=== PATIENT | female | born 1945 | race Native Hawaiian/Other Pacific Islander ===

== ENCOUNTER 2016-06-09 21:25 | Emergency (ER) | payer OTHER ==
[~2016-06-09] VITALS: Ht 165.1 cm; Wt 91.2 kg
[~2016-06-09 21:25] MED LIST: ATEN50TA36 PO; BUDE1AER5 INH; ENALAPRIL20 MG PO; FURO10IN15 PO; FURO40TA93 PO; HUMALOG100 MG/ML SC; INSUINJP SC; LEVO0.2T35 PO; NITR100C56 PO; NITROSTAT0.4 MG SL; PEPCID40 MG PO; POTASSIUM CHLO10 ME2 PO; PROAIR HFA INH
[2016-06-09 23:06] VITALS: BP 157/88; TEMP 97.8
[2016-07-26] MEDS ORDERED: AMOX875T8 PO (03:36)
[2016-10-10] MEDS ORDERED: LEVEMIR SC (12:00)
[2016-10-10] MEDS ORDERED: HUMULIN R1 M1 SC (12:02)
== END 2016-06-09 23:10 | disposition home or self-care (01) ==
LOC: ED 21:25
DX: J32.8 Other chronic sinusitis (principal); J06.9 Acute upper respiratory infection, unspecified
CPT/HCPCS: 96372; 96373; 99283; J0696; J1100

== ENCOUNTER 2016-06-17 23:56 | Emergency (ER) | payer OTHER ==
[~2016-06-17] VITALS: Ht 165.1 cm; Wt 91.6 kg
[2016-06-18] MEDS ORDERED: DIOVAN HCT160 MG/25 PO (00:13)
[2016-06-18] MEDS ORDERED: CLARITIN10 M1 PO (00:13)
[2016-06-18] MEDS ORDERED: PANT40TA PO (00:13)
[2016-06-18] MEDS ORDERED: HYDR10TA47 PO (00:14)
[2016-06-18 01:19] VITALS: BP 160/72; TEMP 98.4
[2016-07-26] MEDS ORDERED: AMOX875T8 PO (03:36)
[2016-10-10] MEDS ORDERED: LEVEMIR SC (12:00)
[2016-10-10] MEDS ORDERED: HUMULIN R1 M1 SC (12:02)
== END 2016-06-18 01:20 | disposition home or self-care (01) ==
LOC: ED 23:56
DX: G43.809 Other migraine, not intractable, without status migrainosus (principal); J32.8 Other chronic sinusitis
CPT/HCPCS: 96361; 96374; 96375; 99284; J1100; J1200; J1885; J2405

== ENCOUNTER 2016-06-21 00:01 | Emergency (ER) | payer OTHER ==
[~2016-06-21] VITALS: Ht 165.1 cm; Wt 91.6 kg
[~2016-06-21 00:01] MED LIST changes: +CLARITIN10 M1 PO; +DIOVAN HCT160 MG/25 PO; +HYDR10TA47 PO; +PANT40TA PO
[2016-06-21 00:31] VITALS: BP 145/68; TEMP 97.6
[2016-07-26] MEDS ORDERED: AMOX875T8 PO (03:36)
[2016-10-10] MEDS ORDERED: LEVEMIR SC (12:00)
[2016-10-10] MEDS ORDERED: HUMULIN R1 M1 SC (12:02)
== END 2016-06-21 00:32 | disposition home or self-care (01) ==
LOC: ED 00:01
DX: J32.8 Other chronic sinusitis (principal); R51 Headache
CPT/HCPCS: 96372; 99282; J1885

== ENCOUNTER 2016-06-25 18:16 | Emergency (ER) | payer OTHER ==
[~2016-06-25] VITALS: Ht 165.1 cm; Wt 91.2 kg
[2016-06-25 19:53] VITALS: BP 169/79; TEMP 97.6
[2016-07-26] MEDS ORDERED: AMOX875T8 PO (03:36)
[2016-10-10] MEDS ORDERED: LEVEMIR SC (12:00)
[2016-10-10] MEDS ORDERED: HUMULIN R1 M1 SC (12:02)
== END 2016-06-25 19:53 | disposition home or self-care (01) ==
LOC: ED 18:16
DX: G43.809 Other migraine, not intractable, without status migrainosus (principal)
CPT/HCPCS: 96372; 99283; J3030

== ENCOUNTER 2016-07-19 22:38 | Emergency (ER) | payer OTHER ==
[~2016-07-19] VITALS: Ht 165.1 cm; Wt 94.3 kg
[2016-07-20 00:42] VITALS: BP 129/55; TEMP 98.7
[2016-07-26] MEDS ORDERED: AMOX875T8 PO (03:36)
[2016-10-10] MEDS ORDERED: LEVEMIR SC (12:00)
[2016-10-10] MEDS ORDERED: HUMULIN R1 M1 SC (12:02)
== END 2016-07-20 00:42 | disposition home or self-care (01) ==
LOC: ED 22:38
DX: M54.10 Radiculopathy, site unspecified (principal)
CPT/HCPCS: 96372; 99283; J1885

== ENCOUNTER 2016-07-23 10:53 | Outpatient (CLI) | payer OTHER ==
[2016-07-26] MEDS ORDERED: AMOX875T8 PO (03:36)
[2016-10-10] MEDS ORDERED: LEVEMIR SC (12:00)
[2016-10-10] MEDS ORDERED: HUMULIN R1 M1 SC (12:02)
== END 2016-07-23 19:16 | disposition home or self-care (01) ==
LOC: CT 10:53
DX: J32.0 Chronic maxillary sinusitis (principal)

== ENCOUNTER 2016-07-31 22:52 | Emergency (ER) | payer OTHER ==
[~2016-07-31] VITALS: Ht 165.1 cm; Wt 94.3 kg
[~2016-07-31 22:52] MED LIST changes: +AMOX875T8 PO
[2016-08-01 00:44] LABS: PLATELET COUNT 307 K/uL (152-353)
[2016-08-01 01:35] LABS: POTASSIUM 4.3 mmol/L (3.6-5.2)
[2016-08-01 01:49] VITALS: BP 143/84; TEMP 98.7
[2016-10-10] MEDS ORDERED: LEVEMIR SC (12:00)
[2016-10-10] MEDS ORDERED: HUMULIN R1 M1 SC (12:02)
== END 2016-08-01 01:53 | disposition home or self-care (01) ==
LOC: ED 22:52
PROVIDERS: Specialist
DX: R10.13 Epigastric pain (principal); R06.2 Wheezing
CPT/HCPCS: 36415; 80053; 82805; 83880; 85027; 99283

== ENCOUNTER 2016-08-10 14:29 | Outpatient (CLI) | payer OTHER ==
[2016-10-10] MEDS ORDERED: LEVEMIR SC (12:00)
[2016-10-10] MEDS ORDERED: HUMULIN R1 M1 SC (12:02)
== END 2016-08-10 19:16 | disposition home or self-care (01) ==
LOC: RESP 14:29
DX: R06.02 Shortness of breath (principal)
CPT/HCPCS: 93306

== ENCOUNTER 2016-08-28 18:51 | Emergency (ER) | payer OTHER ==
[~2016-08-28] VITALS: Ht 165.1 cm; Wt 94.3 kg
[2016-08-28 20:08] LABS: PLATELET COUNT 243 K/uL (152-353)
[2016-08-28 21:07] VITALS: BP 135/79; TEMP 98.3
[2016-10-10] MEDS ORDERED: LEVEMIR SC (12:00)
[2016-10-10] MEDS ORDERED: HUMULIN R1 M1 SC (12:02)
== END 2016-08-28 21:08 | disposition home or self-care (01) ==
LOC: ED 18:51
DX: B34.9 Viral infection, unspecified (principal)
CPT/HCPCS: 80053; 85027; 87081; 87804; 87880; 96360; 99284

== ENCOUNTER 2016-09-17 12:13 | Outpatient (CLI) | payer OTHER ==
[2016-09-17 12:30] VITALS: BP 110/66; TEMP 98.7
[2016-10-10] MEDS ORDERED: LEVEMIR SC (12:00)
[2016-10-10] MEDS ORDERED: HUMULIN R1 M1 SC (12:02)
== END 2016-09-17 14:00 | disposition home or self-care (01) ==
LOC: INF 12:13
DX: J32.9 Chronic sinusitis, unspecified (principal)
CPT/HCPCS: 96365; 96366; J1956

== ENCOUNTER 2016-09-18 10:07 | Outpatient (CLI) | payer OTHER ==
[2016-10-10] MEDS ORDERED: LEVEMIR SC (12:00)
[2016-10-10] MEDS ORDERED: HUMULIN R1 M1 SC (12:02)
== END 2016-09-18 12:00 | disposition home or self-care (01) ==
LOC: INF 10:07
DX: J32.9 Chronic sinusitis, unspecified (principal)
CPT/HCPCS: 96365; 96366; J1956

== ENCOUNTER 2016-09-19 08:52 | Outpatient (CLI) | payer OTHER ==
[2016-09-19 09:05] VITALS: BP 156/74; TEMP 97
[2016-10-10] MEDS ORDERED: LEVEMIR SC (12:00)
[2016-10-10] MEDS ORDERED: HUMULIN R1 M1 SC (12:02)
== END 2016-09-19 21:54 | disposition home or self-care (01) ==
LOC: INF 08:52
DX: J32.9 Chronic sinusitis, unspecified (principal)
CPT/HCPCS: 96365; 96366; J1956

== ENCOUNTER 2016-09-20 10:57 | Outpatient (CLI) | payer OTHER ==
[~2016-09-20] VITALS: Ht 165.1 cm; Wt 93.9 kg
[2016-09-20 11:04] VITALS: BP 145/69; TEMP 97.7
[2016-09-20 13:40] VITALS: BP 154/63; TEMP 97.9
[2016-10-10] MEDS ORDERED: LEVEMIR SC (12:00)
[2016-10-10] MEDS ORDERED: HUMULIN R1 M1 SC (12:02)
== END 2016-09-20 19:22 | disposition home or self-care (01) ==
LOC: INF 10:57
DX: J32.9 Chronic sinusitis, unspecified (principal)
CPT/HCPCS: 96365; 96366; J1956

== ENCOUNTER 2016-09-21 09:07 | Outpatient (CLI) | payer OTHER ==
[~2016-09-21] VITALS: Ht 165.1 cm; Wt 93.9 kg
[2016-09-21 09:15] VITALS: BP 142/66; TEMP 97.6
[2016-09-21 11:55] VITALS: BP 134/66; TEMP 98.4
[2016-10-10] MEDS ORDERED: LEVEMIR SC (12:00)
[2016-10-10] MEDS ORDERED: HUMULIN R1 M1 SC (12:02)
== END 2016-09-21 12:03 | disposition home or self-care (01) ==
LOC: INF 09:07
DX: J32.9 Chronic sinusitis, unspecified (principal)
CPT/HCPCS: 96365; 96366; J1956

== ENCOUNTER 2016-09-22 09:29 | Outpatient (CLI) | payer OTHER ==
[~2016-09-22] VITALS: Ht 170.2 cm; Wt 93.9 kg
[2016-09-22 10:14] VITALS: BP 156/79; TEMP 97.6
[2016-09-22 12:25] VITALS: BP 131/76; TEMP 97.6
[2016-10-10] MEDS ORDERED: LEVEMIR SC (12:00)
[2016-10-10] MEDS ORDERED: HUMULIN R1 M1 SC (12:02)
== END 2016-09-22 12:25 | disposition home or self-care (01) ==
LOC: INF 09:29
DX: J32.9 Chronic sinusitis, unspecified (principal)
CPT/HCPCS: 96365; 96366; J1956

== ENCOUNTER 2016-09-23 12:07 | Outpatient (CLI) | payer OTHER ==
[2016-09-23 12:15] VITALS: BP 148/73; TEMP 98.3
[2016-09-23 14:25] VITALS: BP 140/69; TEMP 98.3
[2016-10-10] MEDS ORDERED: LEVEMIR SC (12:00)
[2016-10-10] MEDS ORDERED: HUMULIN R1 M1 SC (12:02)
== END 2016-09-23 14:25 | disposition home or self-care (01) ==
LOC: INF 12:07
DX: J32.9 Chronic sinusitis, unspecified (principal)
CPT/HCPCS: 96365; 96366; J1956

== ENCOUNTER 2016-10-08 17:05 | Outpatient (CLI) | payer OTHER ==
[2016-10-10] MEDS ORDERED: LEVEMIR SC (12:00)
[2016-10-10] MEDS ORDERED: HUMULIN R1 M1 SC (12:02)
== END 2016-10-08 17:15 | disposition short-term general hospital (02) ==
LOC: AMB 17:05
DX: G81.94 Hemiplegia, unspecified affecting left nondominant side (principal)
CPT/HCPCS: A0425; A0427

== ENCOUNTER 2016-10-19 12:06 | Outpatient (CLI) | payer OTHER ==
[~2016-10-19] VITALS: Ht 165.1 cm; Wt 94.3 kg
[~2016-10-19 12:06] MED LIST changes: +HUMULIN R1 M1 SC; +LEVEMIR SC
[2016-10-19 12:15] VITALS: BP 134/57; TEMP 98.9
[2016-10-19 13:18] VITALS: BP 139/57
== END 2016-10-19 19:11 | disposition home or self-care (01) ==
LOC: INF 12:06
DX: N39.0 Urinary tract infection, site not specified (principal)
CPT/HCPCS: 96365; 96375; J1335; J1642

== ENCOUNTER 2016-10-20 11:46 | Outpatient (CLI) | payer OTHER ==
[~2016-10-20] VITALS: Ht 165.1 cm; Wt 94.3 kg
[2016-10-20 11:50] VITALS: BP 151/62; TEMP 98.6
[2016-10-20 12:40] VITALS: BP 154/79
== END 2016-10-20 12:40 | disposition home or self-care (01) ==
LOC: INF 11:46
DX: N39.0 Urinary tract infection, site not specified (principal)
CPT/HCPCS: 96365; 96375; J1335; J1642

== ENCOUNTER 2016-10-21 11:10 | Outpatient (CLI) | payer OTHER ==
[~2016-10-21] VITALS: Ht 165.1 cm; Wt 94.3 kg
[2016-10-21 14:39] VITALS: BP 187/78; TEMP 97.6
== END 2016-10-21 12:10 | disposition home or self-care (01) ==
LOC: INF 11:10
DX: N39.0 Urinary tract infection, site not specified (principal)
CPT/HCPCS: 96365; J1335; J1642

== ENCOUNTER 2016-10-22 12:42 | Outpatient (CLI) | payer OTHER | END 2016-10-22 14:01 | disposition home or self-care (01) | LOC: INF 12:42 | DX: N39.0 Urinary tract infection, site not specified (principal) | CPT/HCPCS: 96365; 96375; J1335; J1642 ==

== ENCOUNTER 2016-11-25 00:22 | Emergency (ER) | payer OTHER ==
[~2016-11-25] VITALS: Ht 165.1 cm; Wt 94.3 kg
[2016-11-25] MEDS ORDERED: PROC5INJ PO (00:34)
[2016-11-25] MEDS ORDERED: FEMARA2.5 MG OR (00:35)
[2016-11-25] MEDS ORDERED: ELIQUIS5 MG OR (00:36)
[2016-11-25] MEDS ORDERED: TAMS0.4C PO (00:37)
[2016-11-25 01:54] LABS: POTASSIUM 5.5 mmol/L (3.6-5.2)
[2016-11-25 02:03] VITALS: BP 193/70; TEMP 98
== END 2016-11-25 02:05 | disposition home or self-care (01) ==
LOC: ED 00:22
DX: S63.682A Other sprain of left thumb, initial encounter (principal); E11.9 Type 2 diabetes mellitus without complications; N18.9 Chronic kidney disease, unspecified; W06.XXXA Fall from bed, initial encounter; Y92.098 Other place in other non-institutional residence as the place of occurrence of the external cause
CPT/HCPCS: 36415; 80053; 83036; 99283

== ENCOUNTER 2016-12-06 11:15 | Outpatient (CLI) | payer OTHER ==
[~2016-12-06 11:15] MED LIST changes: +ELIQUIS5 MG OR; +FEMARA2.5 MG OR; +PROC5INJ PO; +TAMS0.4C PO
== END 2016-12-06 11:27 | disposition short-term general hospital (02) ==
LOC: AMB 11:15
DX: M25.551 Pain in right hip (principal); M79.602 Pain in left arm; I69.854 Hemiplegia and hemiparesis following other cerebrovascular disease affecting left non-dominant side; W18.39XA Other fall on same level, initial encounter; Y92.098 Other place in other non-institutional residence as the place of occurrence of the external cause
CPT/HCPCS: A0425; A0427

== ENCOUNTER 2016-12-06 11:15 | Emergency (ER) | payer OTHER ==
[~2016-12-06] VITALS: Ht 167.6 cm; Wt 94.3 kg
[2016-12-06 11:54] VITALS: TEMP 98.4
[2016-12-06 14:11] VITALS: BP 142/82
== END 2016-12-06 14:10 | disposition home or self-care (01) ==
LOC: ED 11:15
DX: S70.02XA Contusion of left hip, initial encounter (principal); S40.022A Contusion of left upper arm, initial encounter; S50.12XA Contusion of left forearm, initial encounter; W18.39XA Other fall on same level, initial encounter; Y92.098 Other place in other non-institutional residence as the place of occurrence of the external cause
CPT/HCPCS: 36415; 99283

== ENCOUNTER 2016-12-25 01:07 | Outpatient (CLI) | payer OTHER ==
[2016-12-25] MEDS ORDERED: LORA0.5T17 PO (02:32)
[2016-12-25] MEDS ORDERED: FURO40TA93 PO (02:33)
[2016-12-25] MEDS ORDERED: LEVEMIR SC (02:38)
== END 2016-12-25 01:17 | disposition short-term general hospital (02) ==
LOC: AMB 01:07
DX: R40.20 Unspecified coma (principal)
CPT/HCPCS: A0425; A0427

== ENCOUNTER 2016-12-25 01:20 | Inpatient (IN) | payer OTHER ==
[~2016-12-25] VITALS: Ht 165.1 cm; Wt 88.6 kg
[2016-12-25 01:48] VITALS: BP 120/64; TEMP 98.9
[2016-12-25 02:09] LABS: PLATELET COUNT 341 K/uL (152-353)
[2016-12-25 02:19] LABS: SODIUM 137 mmol/L (136-145)
[2016-12-25] MEDS ORDERED: LORA0.5T17 PO (02:32)
[2016-12-25] MEDS ORDERED: FURO40TA93 PO (02:33)
[2016-12-25] MEDS ORDERED: LEVEMIR SC (02:38)
[2016-12-25 04:36] VITALS: BP 107/59
[2016-12-25 06:28] VITALS: BP 153/78; TEMP 97.4; Ht 165.1 cm; Wt 88.6 kg
[2016-12-25 08:00] VITALS: BP 153/76; TEMP 99.2
[2016-12-25 16:00] VITALS: BP 162/77; TEMP 99.4
[2016-12-25 20:00] VITALS: BP 175/73; TEMP 98.3
[2016-12-26] VITALS: BP 156/70; TEMP 100.1
[2016-12-26 04:00] VITALS: BP 141/65; TEMP 100
[2016-12-26 07:41] LABS: PLATELET COUNT 255 K/uL (152-353)
[2016-12-26 08:00] VITALS: BP 135/70; TEMP 97.6
[2016-12-26 08:35] LABS: POTASSIUM 3.9 mmol/L (3.6-5.2)
[2016-12-26 12:00] VITALS: BP 152/70; TEMP 98.3
[2016-12-26 16:00] VITALS: BP 160/68; TEMP 97
[2016-12-26 16:03] LABS: PARTIAL THROMBOPLASTIN TIME 27.4 SECONDS (24.5-33.6)
[2016-12-26 20:00] VITALS: BP 171/76; TEMP 98.5
[2016-12-27] VITALS: BP 129/66; TEMP 98.7
[2016-12-27 04:00] VITALS: BP 140/57; TEMP 99.1
[2016-12-27 04:42] LABS: PLATELET COUNT 257 K/uL (152-353)
[2016-12-27 05:06] LABS: POTASSIUM 3.8 mmol/L (3.6-5.2)
[2016-12-27 08:00] VITALS: BP 146/62; TEMP 98.1
[2016-12-27 12:00] VITALS: BP 174/64; TEMP 98.3
[2016-12-27 16:00] VITALS: BP 174/76; TEMP 98.6
[2016-12-27 20:00] VITALS: BP 165/73; TEMP 98.8
[2016-12-28] VITALS: BP 144/66; TEMP 98.2
[2016-12-28 04:00] VITALS: BP 129/56; TEMP 98.9
[2016-12-28 05:28] LABS: PLATELET COUNT 264 K/uL (152-353)
[2016-12-28 05:52] LABS: POTASSIUM 3.3 mmol/L (3.6-5.2)
[2016-12-28 08:00] VITALS: BP 145/63; TEMP 97.7
[2016-12-28 12:00] VITALS: BP 158/74; TEMP 97.7
[2016-12-28 16:00] VITALS: BP 136/77; TEMP 98.2
[2016-12-28 20:22] VITALS: BP 134/65; TEMP 98.1
[2016-12-29] VITALS: BP 173/76; TEMP 98.4
[2016-12-29 04:00] VITALS: BP 174/80; TEMP 97.7
[2016-12-29 06:28] LABS: PLATELET COUNT 266 K/uL (152-353)
[2016-12-29 06:49] LABS: POTASSIUM 3.8 mmol/L (3.6-5.2)
[2016-12-29 08:00] VITALS: BP 150/70; TEMP 97.6
[2016-12-29 12:00] VITALS: BP 133/67; TEMP 97.6
[2016-12-29 16:00] VITALS: BP 170/75; TEMP 97.8
[2016-12-29 20:00] VITALS: BP 169/79; TEMP 98.9
[2016-12-30] VITALS: BP 170/75; TEMP 98.7
[2016-12-30 04:00] VITALS: BP 155/68; TEMP 98.9
[2016-12-30 04:23] LABS: PLATELET COUNT 285 K/uL (152-353)
[2016-12-30 04:33] LABS: POTASSIUM 3.5 mmol/L (3.6-5.2); SODIUM 135 mmol/L (136-145)
[2016-12-30 08:00] VITALS: BP 172/71; TEMP 99.5
[2016-12-30 12:00] VITALS: BP 156/71; TEMP 99.5
== END 2016-12-30 19:55 | DRG 65 ==
LOC: ED 01:20 → MED/SURG 04:50
PROVIDERS: Family Medicine; Internal Medicine; ADMIT Emergency Medicine
PROC: 30233N1 Transfusion of Nonautologous Red Blood Cells into Peripheral Vein, Percutaneous Approach (ICD-10-PCS; principal; 2016-12-26)
DX: I63.511 Cerebral infarction due to unspecified occlusion or stenosis of right middle cerebral artery (principal); N10 Acute pyelonephritis; B96.1 Klebsiella pneumoniae [K. pneumoniae] as the cause of diseases classified elsewhere; E11.9 Type 2 diabetes mellitus without complications; Z86.73 Personal history of transient ischemic attack (TIA), and cerebral infarction without residual deficits; I10 Essential (primary) hypertension; R53.81 Other malaise; D64.89 Other specified anemias; E87.6 Hypokalemia; E83.42 Hypomagnesemia
CPT/HCPCS: 36415; 36430; 36591; 36600; 80053; 80307; 80320; 80329; 81000; 82140; 82550; 82607; 82728; 82747; 82805; 82948; 83540; 83550; 83605; 83615; 83735; 83880; 84443; 84484; 85014; 85018; 85027; 85610; 85651; 85730; 86340; 86850; 86900; 86901; 86922; 87015; 87040; 87045; 87077; 87086; 87088; 87205; 87328; 87329; 87899; 93005; 94760; 96361; 96365; 96366; 96367; 96372; 99284; G0479; J1644; J1650; J1815; J1956; J2405; J3420; J3475; J3480; P9016